=== PATIENT | male | born 1960 ===

== ENCOUNTER 2018-03-05 11:10 | Inpatient (IN) | payer MEDICAID ==
[~2018-03-05] VITALS: Ht 175.3 cm; Wt 100.0 kg
[2018-03-05] MEDS ORDERED: NITROGLYCERIN OINT 2%, 1GM TP ONE ×2 (12:58→13:00)
[2018-03-05] MEDS ORDERED: NITROGLYCERIN SINGLE TAB 0.4 MG SL ONE (12:58)
[2018-03-05] MEDS ORDERED: ASPIRIN 81 MG TABLET CHEW ONE (12:58)
[2018-03-05] MEDS ORDERED: SODIUM CHLORIDE FLUSH 10ML SYR IVF ONE (13:00)
[2018-03-05] MEDS ORDERED: ASPIRIN 81 MG TABLET CHEW PO ONE (13:00)
[2018-03-05] MEDS ORDERED: NITROGLYCERIN SINGLE TAB 0.4 MG SL PRN (13:00)
[2018-03-05 13:13] LABS: BASOPHILS # (AUTO) 0.02 x10^3/uL (0-0.1); BASOPHILS % (AUTO) 0 % (0-1); EOSINOPHILS # (AUTO) 0.12 x10^3/uL (0-0.4); EOSINOPHILS % (AUTO) 1 % (1-7); LYMPHOCYTES % (AUTO) 24 % (22-44); MD NO; MEAN CORPUSCULAR HEMOGLOBIN 30.2 pg (27.5-34.5); MEAN CORPUSCULAR HGB CONC 33.4 g/dL (33.2-36.2); MEAN CORPUSCULAR VOLUME 90.6 fL (81-97); MEAN PLATELET VOLUME 8.1 fL (7.4-10.4); MONOCYTES # (AUTO) 0.67 x10^3/uL (0.2-0.8); MONOCYTES % (AUTO) 6 % (2-9); NEUTROPHILS % (AUTO) 69 % (42-75); PLATELET COUNT 340 x10^3/uL (130-400); RED BLOOD COUNT 4.91 x10^6/uL (4.38-5.82); RED CELL DISTRIBUTION WIDTH 14.9 % (9.4-14.8)
[2018-03-05 13:24] LABS: CHLORIDE 106 mmol/L (98-107)
[2018-03-05 13:35] LABS: ALBUMIN 3.1 g/dL (3.4-5.0); ANION GAP 9 mmol/L (5-15); CALCIUM 8.3 mg/dL (8.5-10.1); CREATININE 1.13 mg/dL (0.7-1.3)
[2018-03-05] MEDS ORDERED: METOPROLOL TARTRATE 50 MG TABLET ONE (13:53)
[2018-03-05] MEDS ORDERED: HEPARIN 25,000 UNITS/500ML PMX 500 ML ONE (13:58)
[2018-03-05] MEDS ORDERED: HEPARIN 5,000 UNITS/ML, 1ML ONE (13:58)
[2018-03-05] MEDS ORDERED: HEPARIN 5,000 UNITS/ML, 1ML IV ONE (14:00)
[2018-03-05] MEDS ORDERED: HEPARIN 5,000 UNITS/ML, 1ML IV PRN (14:00)
[2018-03-05] MEDS: HEPARIN 25,000 UNITS/500ML PMX 500 ML IV PRN ×2 (14:12→18:17)
[2018-03-05] MEDS ORDERED: METO50TA82 PO (14:19)
[2018-03-05] MEDS ORDERED: CLOP75TA PO (14:19)
[2018-03-05] MEDS ORDERED: LISI-170 PO (14:19)
[2018-03-05] MEDS ORDERED: ATOR40TA78 PO (14:19)
[2018-03-05] MEDS ORDERED: METOPROLOL TARTRATE 50 MG TABLET PO ONE (14:30)
[2018-03-05] MEDS ORDERED: OMNIPAQUE 350 MG/ML, 100ML BOTTLE ONE (14:56)
[2018-03-05] MEDS ORDERED: LABETALOL 5MG/ML, 20ML IVPush PRN (15:30)
[2018-03-05] MEDS ORDERED: LISINOPRIL 20 MG TABLET PO ONE (15:30)
[2018-03-05] MEDS ORDERED: ONDANSETRON ODT 4 MG PO PRN (15:30)
[2018-03-05] MEDS ORDERED: BISACODYL 10 MG SUPP PR PRN (15:30)
[2018-03-05] MEDS ORDERED: ENALAPRILAT 1.25 MG/ML, 2ML IVPush PRN (15:30)
[2018-03-05] MEDS ORDERED: morphine SULFATE 10 MG/ML, 1ML IVPush PRN (15:30)
[2018-03-05] MEDS ORDERED: ONDANSETRON 2MG/ML, 2ML IVPush PRN (15:30)
[2018-03-05] MEDS ORDERED: ACETAMINOPHEN 325 MG TABLET PO PRN (15:30)
[2018-03-05] MEDS ORDERED: POLYETHYLENE GLYCOL 17 GM PACKET PO PRN (15:30)
[2018-03-05] MEDS ORDERED: DOCUSATE 100 MG CAPSULE PO PRN (15:30)
[2018-03-05] MEDS ORDERED: LISINOPRIL 20 MG TABLET ONE (16:07)
[2018-03-05 16:43] LABS: HEMOGLOBIN A1C 8.4 % (4.2-6.3)
[2018-03-05 17:05] VITALS: BP 157/118
[2018-03-05] MEDS ORDERED: ALBUTEROL/IPRATROPIUM 2.5MG/0.5MG, 3 ML ONE (17:07)
[2018-03-05] MEDS ORDERED: ALBUTEROL/IPRATROPIUM 2.5MG/0.5MG, 3 ML NPPB SCH (20:00)
[2018-03-05] MEDS ORDERED: METOPROLOL TARTRATE 25 MG TABLET PO ONE (21:00)
[2018-03-05] MEDS ORDERED: ATORVASTATIN 20 MG TABLET PO SCH (21:00)
[2018-03-06] MEDS ORDERED: ASPIRIN 81 MG TABLET EC PO SCH (06:00)
[2018-03-06] MEDS ORDERED: CLOPIDOGREL 75 MG TABLET PO SCH (09:00)
[2018-03-06] MEDS ORDERED: METOPROLOL TARTRATE 50 MG TABLET PO SCH (09:00)
[2018-03-06] MEDS ORDERED: SENNA/DOCUSATE TABLET PO SCH (09:00)
[2018-03-06] MEDS ORDERED: LISINOPRIL 20 MG TABLET PO SCH (09:00)
== END 2018-03-05 19:35 | disposition left against medical advice (07) | DRG 280 ==
LOC: ED 14:16 → EDIP 14:17 → ED 15:10 → 5SO 16:54
PROVIDERS: ADMIT Hospitalist; ATTEND Hospitalist
DX: I21.4 Non-ST elevation (NSTEMI) myocardial infarction (principal); I26.99 Other pulmonary embolism without acute cor pulmonale; J18.9 Pneumonia, unspecified organism; I16.9 Hypertensive crisis, unspecified; J44.0 Chronic obstructive pulmonary disease with (acute) lower respiratory infection; E78.5 Hyperlipidemia, unspecified; Z53.21 Procedure and treatment not carried out due to patient leaving prior to being seen by health care provider; I25.110 Atherosclerotic heart disease of native coronary artery with unstable angina pectoris; F17.210 Nicotine dependence, cigarettes, uncomplicated; I10 Essential (primary) hypertension; Z79.82 Long term (current) use of aspirin; R79.1 Abnormal coagulation profile; Z82.49 Family history of ischemic heart disease and other diseases of the circulatory system; Z90.81 Acquired absence of spleen; Z83.3 Family history of diabetes mellitus; Z91.14 Patient's other noncompliance with medication regimen; Z95.5 Presence of coronary angioplasty implant and graft
CPT/HCPCS: 36415; 71045; 71275; 80048; 82040; 82962; 83036; 83880; 84484; 85025; 85379; 85520; 93005; 94640; 96374; J1644; J7620; Q9967

== ENCOUNTER 2018-03-06 06:31 | Emergency (ER) | payer MEDICAID ==
[~2018-03-06] VITALS: Ht 175.3 cm; Wt 102.0 kg
[~2018-03-06 06:31] MED LIST: ATOR40TA78 PO; CLOP75TA PO; LISI-170 PO; METO50TA82 PO
[2018-03-06] MEDS ORDERED: ASPIRIN 81 MG TABLET CHEW ONE (06:57)
[2018-03-06] MEDS ORDERED: ASPIRIN 81 MG TABLET CHEW PO ONE (07:00)
[2018-03-06 07:03] LABS: BASOPHILS # (AUTO) 0.05 x10^3/uL (0-0.1); BASOPHILS % (AUTO) 0 % (0-1); EOSINOPHILS # (AUTO) 0.09 x10^3/uL (0-0.4); EOSINOPHILS % (AUTO) 1 % (1-7); LYMPHOCYTES # (AUTO) 2.57 x10^3/uL (1-3.4); LYMPHOCYTES % (AUTO) 18 % (22-44); MD NO; MEAN CORPUSCULAR HEMOGLOBIN 29.7 pg (27.5-34.5); MEAN CORPUSCULAR HGB CONC 33.1 g/dL (33.2-36.2); MEAN CORPUSCULAR VOLUME 89.7 fL (81-97); MEAN PLATELET VOLUME 8.4 fL (7.4-10.4); MONOCYTES # (AUTO) 0.78 x10^3/uL (0.2-0.8); MONOCYTES % (AUTO) 5 % (2-9); NEUTROPHILS % (AUTO) 76 % (42-75); PLATELET COUNT 337 x10^3/uL (130-400); RED BLOOD COUNT 4.79 x10^6/uL (4.38-5.82); RED CELL DISTRIBUTION WIDTH 15.1 % (9.4-14.8)
[2018-03-06 07:09] LABS: ALBUMIN 3.1 g/dL (3.4-5.0); ANION GAP 6 mmol/L (5-15); CALCIUM 8.2 mg/dL (8.5-10.1); CHLORIDE 105 mmol/L (98-107); CREATININE 1.42 mg/dL (0.7-1.3)
[2018-03-06] MEDS ORDERED: morphine SULFATE 10 MG/ML, 1ML IVPush PRN (09:00)
[2018-03-06] MEDS ORDERED: METOPROLOL TARTRATE 50 MG TABLET PO SCH (09:00)
[2018-03-06] MEDS ORDERED: ONDANSETRON ODT 4 MG PO PRN (09:00)
[2018-03-06] MEDS ORDERED: GUAIFENESIN/DM 200-20MG, 10ML UDC PO PRN (09:00)
[2018-03-06] MEDS ORDERED: POLYETHYLENE GLYCOL 17 GM PACKET PO PRN (09:00)
[2018-03-06] MEDS ORDERED: SENNA/DOCUSATE TABLET PO SCH (09:00)
[2018-03-06] MEDS ORDERED: LABETALOL 5MG/ML, 20ML IVPush PRN (09:00)
[2018-03-06] MEDS ORDERED: CLOPIDOGREL 75 MG TABLET PO SCH (09:00)
[2018-03-06] MEDS ORDERED: LISINOPRIL 20 MG TABLET PO SCH (09:00)
[2018-03-06] MEDS ORDERED: ONDANSETRON 2MG/ML, 2ML IVPush PRN (09:00)
[2018-03-06 09:18] LABS: FREE T4 (FREE THYROXINE) 1.04 ng/dL (0.76-1.46)
[2018-03-06] MEDS ORDERED: LISINOPRIL 20 MG TABLET ONE (10:04)
[2018-03-06] MEDS ORDERED: CLOPIDOGREL 75 MG TABLET ONE (10:05)
[2018-03-06] MEDS ORDERED: METOPROLOL TARTRATE 50 MG TABLET ONE (10:05)
[2018-03-06] MEDS ORDERED: ALBUTEROL/IPRATROPIUM 2.5MG/0.5MG, 3 ML ONE (11:49)
[2018-03-06 12:48] VITALS: BP 150/102
[2018-03-06] MEDS ORDERED: ALBUTEROL/IPRATROPIUM 2.5MG/0.5MG, 3 ML NPPB SCH (15:00)
[2018-03-06] MEDS ORDERED: ATORVASTATIN 40 MG TABLET PO SCH (21:00)
== END 2018-03-06 14:06 | disposition left against medical advice (07) ==
LOC: ED 07:52 → UNDOADMIN 07:53 → EDIP 07:53 → ED 08:01
DX: I21.4 Non-ST elevation (NSTEMI) myocardial infarction (principal); D72.829 Elevated white blood cell count, unspecified; R73.9 Hyperglycemia, unspecified; N28.9 Disorder of kidney and ureter, unspecified; J44.9 Chronic obstructive pulmonary disease, unspecified; I25.2 Old myocardial infarction; I10 Essential (primary) hypertension
CPT/HCPCS: 36415; 71045; 80048; 82040; 83880; 84439; 84484; 85025; 93005; 94640; 99285; J7620

== ENCOUNTER 2018-04-12 01:08 | Emergency (ER) | payer MEDICAID ==
[~2018-04-12] VITALS: Ht 175.3 cm; Wt 91.0 kg
[2018-04-12 01:46] LABS: BASOPHILS # (AUTO) 0.03 x10^3/uL (0-0.1); BASOPHILS % (AUTO) 0 % (0-1); EOSINOPHILS # (AUTO) 0.13 x10^3/uL (0-0.4); EOSINOPHILS % (AUTO) 1 % (1-7); LYMPHOCYTES # (AUTO) 1.68 x10^3/uL (1-3.4); LYMPHOCYTES % (AUTO) 16 % (22-44); MD NO; MEAN CORPUSCULAR HEMOGLOBIN 29.6 pg (27.5-34.5); MEAN CORPUSCULAR HGB CONC 33.4 g/dL (33.2-36.2); MEAN CORPUSCULAR VOLUME 88.7 fL (81-97); MEAN PLATELET VOLUME 7.7 fL (7.4-10.4); MONOCYTES # (AUTO) 0.71 x10^3/uL (0.2-0.8); MONOCYTES % (AUTO) 7 % (2-9); NEUTROPHILS # (AUTO) 7.76 x10^3/uL (1.8-6.8); NEUTROPHILS % (AUTO) 75 % (42-75); PLATELET COUNT 331 x10^3/uL (130-400); RED BLOOD COUNT 4.46 x10^6/uL (4.38-5.82); RED CELL DISTRIBUTION WIDTH 16.2 % (9.4-14.8)
[2018-04-12] MEDS ORDERED: FURO-93 PO (01:48)
[2018-04-12] MEDS ORDERED: CLOP75TA52 PO (01:48)
[2018-04-12] MEDS ORDERED: SPIR25TA3 PO (01:48)
[2018-04-12] MEDS ORDERED: METO50TA82 PO (01:48)
[2018-04-12] MEDS ORDERED: ISOS30TA8 PO (01:48)
[2018-04-12] MEDS ORDERED: GLIP10TA13 PO (01:48)
[2018-04-12] MEDS ORDERED: LISI-167 PO (01:48)
[2018-04-12] MEDS ORDERED: ASPI-496 PO (01:48)
[2018-04-12] MEDS ORDERED: ATOR40TA PO (01:48)
[2018-04-12 01:56] LABS: INTERNATIONAL NORMALIZED RATIO 1.09 (0.93-1.1); PROTHROMBIN TIME 11.2 Seconds (9.6-11.5)
[2018-04-12 01:59] LABS: ALANINE AMINOTRANSFERASE 20 U/L (12-78); ALBUMIN 3.3 g/dL (3.4-5.0); ANION GAP 11 mmol/L (5-15); CHLORIDE 104 mmol/L (98-107); CREATININE 1.79 mg/dL (0.7-1.3)
[2018-04-12 02:02] LABS: ALKALINE PHOSPHATASE 104 U/L (45-117); BILIRUBIN,TOTAL 0.4 mg/dL (0.2-1.0); TOTAL PROTEIN 8.2 g/dL (6.4-8.2)
[2018-04-12 03:44] LABS: MICROSCOPIC AUTO
[2018-04-12 03:45] LABS: CULTURE INDICATED? NO
[2018-04-12 03:47] VITALS: BP 151/93
== END 2018-04-12 05:00 | disposition home or self-care (01) ==
LOC: ED 01:24
DX: K80.20 Calculus of gallbladder without cholecystitis without obstruction (principal); K59.00 Constipation, unspecified; R10.84 Generalized abdominal pain; I10 Essential (primary) hypertension; J44.9 Chronic obstructive pulmonary disease, unspecified; I25.2 Old myocardial infarction
CPT/HCPCS: 36415; 74176; 80053; 81001; 83605; 83690; 85025; 85610; 85730; 93005; 99285